=== PATIENT | male | born 1975 | race Two or more races ===

== ENCOUNTER 2023-05-08 23:57 | Emergency (ER) | payer OTHER ==
[~2023-05-08] VITALS: Ht 180.3 cm; Wt 88.5 kg
[2023-05-09 00:06] VITALS: TEMP 98.1
[2023-05-09] MEDS: methylPREDNISolone SOD SUCC 125 MG/2ML VIAL IV ONE (00:20)
[2023-05-09] MEDS ORDERED: ALBU8.5H8 INH (00:25)
[2023-05-09] MEDS ORDERED: ALBUTEROL FS 2.5 MG/0.5 ML VIAL.NEB ONE (00:36)
[2023-05-09 00:38] VITALS: O2SAT 94
[2023-05-09] MEDS: ALBUTEROL FS 2.5 MG/0.5 ML VIAL.NEB NEB ONE (00:38)
[2023-05-09 00:49] VITALS: O2SAT 97
[2023-05-09 01:30] VITALS: BP 133/84; O2SAT 98
== END 2023-05-09 01:32 | disposition home or self-care (01) ==
LOC: ER 23:59
DX: J45.909 Unspecified asthma, uncomplicated (principal); Z79.899 Other long term (current) drug therapy; Z88.1 Allergy status to other antibiotic agents

== ENCOUNTER → 2023-09-12 | Emergency (ER) | payer OTHER ==
[~2023-09-12] VITALS: Ht 180.3 cm; Wt 93.0 kg
[~2023-09-12] MED LIST: ALBU8.5H8 INH; INDO50CA92 PO; KETOROLAC TROMETHAMINE 15 MG/ML VIAL ONE
[2023-09-12 14:45] VITALS: BP 133/74; TEMP 98.2; O2SAT 99
[2023-09-12 15:35] LABS: BASOPHILS % (AUTO) 0.6 % (0.0-2.0); EOSINOPHILS # (AUTO) 0.4 K/uL (0.0-0.7); EOSINOPHILS % (AUTO) 7.9 % (0.0-6.0); HEMATOCRIT 46 % (39-51); LYMPHOCYTES # (AUTO) 1.1 K/uL (0.8-4.8); LYMPHOCYTES % (AUTO) 20.3 % (20.0-44.0); MEAN CORPUSCULAR HEMOGLOBIN 29 PG (26.0-33.0); MEAN CORPUSCULAR HGB CONC 33 g/dl (31.0-36.0); MEAN CORPUSCULAR VOLUME 88 fL (80-96); MONOCYTES # (AUTO) 0.4 K/uL (0.1-1.30); MONOCYTES % (AUTO) 7.4 % (2.0-12.0); NEUTROPHILS # (AUTO) 3.6 K/uL (1.8-8.9); NEUTROPHILS % (AUTO) 63.8 % (43.0-81.0); PLATELET COUNT (AUTO) 212 K/uL (150-450); RED BLOOD CELL COUNT(AUTO) 5.24 MIL/uL (4.5-6.0); RED CELL DISTRIBUTION WIDTH 14.4 % (11.5-15.0); WHITE BLOOD COUNT (AUTO) 5.6 K/uL (4.3-11.0)
[2023-09-12 15:42] LABS: CALCIUM, SERUM 8.9 mg/dL (8.5-10.1); CREATININE 1.4 mg/dL (0.6-1.3); POTASSIUM 4.4 mmol/L (3.5-5.1)
[2023-09-12] MEDS: KETOROLAC TROMETHAMINE 15 MG/ML VIAL IV ONE (15:44)
[2023-09-12 15:56] LABS: URIC ACID 8.3 mg/dL (2.6-7.2)
== END | disposition home or self-care (01) ==
LOC: ER 14:30
DX: M10.9 Gout, unspecified (principal); J45.909 Unspecified asthma, uncomplicated; Z88.8 Allergy status to other drugs, medicaments and biological substances
CPT/HCPCS: 99283; 96374; 73660; 85025; 80048; 84550; 36415; J1885